=== PATIENT | female | born 1940 | race Two or more races ===

== ENCOUNTER 2016-07-06 22:56 | Emergency (ER) | payer MEDICARE, MEDICAID ==
[~2016-07-06] VITALS: Ht 170.2 cm; Wt 61.4 kg
[2016-07-06] MEDS ORDERED: LORAZEPAM 1 MG TAB PO ONE (23:00)
[2016-07-06 23:04] VITALS: Ht 170.2 cm; Wt 61.4 kg
--- NOTE | 2016-07-06 23:42 | ERD ---
ER Documentation Chief Complaint Date/Time DATE: 07/06/16 TIME: 23:42 Chief Complaint ANXIETY INDUCED VIA INSOMNIA HPI Female comes in with complaints of anxiety secondary to a diagnosis of shingles a few weeks ago. She said she has not slept well a few days. Denies suicidal homicidal ideation. Denies any other current complaints. ROS All systems reviewed and are negative except as per history of present illness. PMhx/Soc History of Surgery: Yes (VARICOSE, BLADDER RECON) Anesthesia Reaction: No Hx Neurological Disorder: No Hx Respiratory Disorders: No Hx Cardiac Disorders: Yes (HTN) Hx Psychiatric Problems: No Hx Miscellaneous Medical Probl: No Hx Alcohol Use: Yes (OCCASIONALLY) Hx Substance Use: No Hx Tobacco Use: No Smoking Status: Never smoker Physical Exam Vitals Vital Signs Date Time Temp Pulse Resp B/P Pulse Ox O2 Delivery O2 Flow Rate FiO2 07/06/16 23:04 99.0 82 20 177/95 100 Physical Exam Const: [] Head: Atraumatic Eyes: Normal Conjunctiva ENT: Normal External Ears, Nose and Mouth. Neck: Full range of motion..~ No meningismus. Resp: Clear to auscultation bilaterally Cardio: Regular rate and rhythm, no murmurs Abd: Soft, non tender, non distended. Normal bowel sounds Skin: No petechiae or rashes Back: No midline or flank tenderness Ext: No cyanosis, or edema Neur: Awake and alert Psych: Normal Mood and Affect Results 24 hrs Current Medications Medications (Trade) Dose Ordered Sig/Christiane Route PRN Reason Start Time Stop Time Status Last Admin Dose Admin Lorazepam (Ativan) 1 mg ONCE ONCE PO 07/06/16 23:00 07/06/16 23:01 DC 07/06/16 23:04 Procedures/MDM Medical decision-making: Patient comes in essentially for anxiety patient treated with p.o. Ativan. She feels much better. To be discharged home. Departure Diagnosis: Primary Impression: Anxiety attack Condition: Stable MARIAH VELASQUEZ Jul 06, 2016 23:42
[2016-07-06] MEDS ORDERED: LORA1TAB PO (23:43)
[2016-07-07 00:12] VITALS: BP 177/78; PULSE 82; RESP 18
== END 2016-07-07 00:12 | disposition home or self-care (01) ==
LOC: E/R 22:56
DX: F41.9 Anxiety disorder, unspecified (principal); I10 Essential (primary) hypertension; R40.2142 Coma scale, eyes open, spontaneous, at arrival to emergency department; R40.2252 Coma scale, best verbal response, oriented, at arrival to emergency department; R40.2362 Coma scale, best motor response, obeys commands, at arrival to emergency department
CPT/HCPCS: 99283

== ENCOUNTER 2017-07-18 07:34 | Emergency (ER) | END 2017-07-18 12:00 | disposition home or self-care (01) ==